=== PATIENT | female | born 1965 | race African-American/Black ===

== ENCOUNTER 2021-01-23 15:19 | Emergency (ER) | payer SELFPAY ==
[~2021-01-23] VITALS: Ht 160 cm; Wt 58.1 kg
[2021-01-23 16:04] VITALS: BP 141/59
[2021-01-23] MEDS ORDERED: HYDR25TA PO (20:29)
[2021-01-23] MEDS ORDERED: BACI28.44 TP (20:29)
[2021-01-23] MEDS ORDERED: METH4TAB2 PO (20:29)
--- NOTE | 2021-01-23 20:29 | ED.ADGEN ---
Past Medical History Past Medical History: No Pertinent History Past Surgical History: No Surgical History Smoking Status: Never Smoker Alcohol Use: None General Adult EDM: Chief Complaint: SKIN RASH/ABSCESS HPI: HPI: Patient is a 55 year old female coming in for worsening 2 weeks of pruritic rash. Patient states she was clearing out in her [place] garden and was exposed to poison oak. Itching them and the rash is moving around. Says she has some excoriated areas on her dorsal left wrist and right camp. Review of Systems: Review of Systems: All other systems within normal limits except for as noted in the HPI Current Medications: Current Medications Medications (Trade) Dose Ordered Sig/Nusrat Start Time Stop Time Status Last Admin Dose Admin Bacitracin (Bacitracin Zinc Oint Pkt) 1 pkt 1X ONCE 01/23/21 20:15 01/23/21 20:16 UNV Ceftriaxone Sodium (Rocephin Im) 1 gm 1X ONCE 01/23/21 20:15 01/23/21 20:16 UNV Hydroxyzine HCl (Vistaril Im) 25 mg 1X ONCE 01/23/21 20:15 01/23/21 20:16 UNV Methylprednisolone Sodium Succinate (SOLU-Medrol 125MG VIAL) 125 mg 1X ONCE 01/23/21 20:15 01/23/21 20:16 UNV Allergies: Allergies: Allergies Coded Allergies Type Severity Reaction Last Updated Verified No Known Drug Allergies 01/23/21 No Physical Exam: PE: Constitutional: Well developed, well nourished, no acute distress, non-toxic appearance. [] HENT: Normocephalic, atraumatic, bilateral external ears normal, nose normal. [] Eyes: PERRLA, conjunctiva normal, no discharge. [] Neck: No rigidity, supple, no stridor. [] Cardiovascular: Regular rate and rhythm, brisk cap refill [] Lungs & Thorax: Non labored symmetric respirations, no tachypnea or respiratory distress [] Abdomen: Soft, nondistended. Skin: Warm, scattered papules in various areas of excoriation worse on left wrist and right camp with some surrounding erythema, no fluctuance or drainage. Back: Unremarkable Extremities: No deformities, range of motion grossly intact, no lower extremity edema [] Neurologic: Alert and oriented X 3, no focal deficits noted. [] Psychologic: Affect normal, judgement normal, mood normal. [] Current Patient Data: Vital Signs: Vital Signs Date Time Temp Pulse Resp B/P (MAP) Pulse Ox O2 Delivery O2 Flow Rate FiO2 01/23/21 16:04 98.3 68 14 141/59 (86) 97 Room Air 98.3 EKG: EKG: [] Heart Score: C/O Chest Pain: No Risk Factors: Risk Factors: DM, Current or recent (<one month) smoker, HTN, HLP, family history of CAD, obesity. Risk Scores: Score 0 - 3: 2.5% MACE over next 6 weeks - Discharge Home Score 4 - 6: 20.3% MACE over next 6 weeks - Admit for Clinical Observation Score 7 - 10: 72.7% MACE over next 6 weeks - Early Invasive Strategies Radiology/Procedures: Radiology/Procedures: [] Course & Med Decision Making: Course & Med Decision Making Mild superficial bacterial infection appears to be on the excoriated areas. We will treat with ceftriaxone. Given his age medications and Solu-Medrol in emergency department. Patient is otherwise well-appearing [place] Disclaimer: Zarina Disclaimer: This electronic medical record was generated, in whole or in part, using a voice recognition dictation system. Departure Departure Disposition: HOME / SELF CARE / HOMELESS Condition: STABLE Referrals: NO PCP (PCP) Patient Instructions: Poison [place] Scripts Hydroxyzine Hcl (HYDROXYZINE HCL) 25 Mg Tablet 1 TAB PO TID PRN for ITCHING for 7 Days, #21 TAB Prov: ROSA GUERIN MD 01/23/21 Methylprednisolone (MEDROL) 4 Mg Tab.ds.pk 1 PKG PO UD for rash, #1 PKG Prov: ROSA GUERIN MD 01/23/21 Bacitracin Zinc (ANTIBIOTIC) 28.4 Gm Oint...g. 28.4 GM TP TID for antibiotic for 7 Days, #28 GM 1 Refill Prov: ROSA GUERIN MD 01/23/21 ROSA GUERIN MD Jan 23, 2021 20:29
[2021-01-23] MEDS ORDERED: methylPREDNISolone SOD SUCC PF 125 MG/2 ML VIAL. IV ONE (20:30)
[2021-01-23] MEDS ORDERED: BACITRACIN TOPICAL OINT PACKET. TP ONE (20:30)
[2021-01-23] MEDS ORDERED: cefTRIAXone IM 1 GM VIAL IM ONE (20:30)
[2021-01-23] MEDS ORDERED: hydrOXYzine IM 50 MG/ML VIAL IM ONE (20:30)
== END 2021-01-23 21:00 | disposition home or self-care (01) ==
LOC: ER 15:19
DX: R21 Rash and other nonspecific skin eruption (principal); L29.8 Other pruritus; R07.89 Other chest pain
CPT/HCPCS: 96372; 96374; 99284; J0696; J2930; J3410

== ENCOUNTER 2021-02-03 13:56 | Emergency (ER) | payer SELFPAY ==
[~2021-02-03] VITALS: Ht 157.5 cm; Wt 60.0 kg
[~2021-02-03 13:56] MED LIST: BACI28.44 TP; HYDR25TA PO; METH4TAB2 PO
[2021-02-03 18:20] VITALS: BP 140/88
[2021-02-03] MEDS ORDERED: DEXAMETHASONE SOD PHOS 20 MG/5 ML VIAL. IV ONE (19:15)
[2021-02-03] MEDS ORDERED: CEPH500T PO (19:40)
[2021-02-03] MEDS ORDERED: TRIA80OI TP (19:40)
[2021-02-03] MEDS ORDERED: PRED-220 PO (19:40)
[2021-02-03] MEDS ORDERED: HYDR50CA2 PO (19:40)
--- NOTE | 2021-02-03 19:41 | PHYS DOC ---
Past Medical History Past Medical History: No Pertinent History (JAYANT SAWANT APRN) Past Surgical History: No Surgical History (JAYANT SAWANT APRN) Smoking Status: Never Smoker Alcohol Use: None (JAYANT SAWANT APRN) General Adult EDM: Chief Complaint: SKIN PROBLEM HPI: HPI: Patient is a 55-year-old female who presents to the ED today with a pruritic rash that began 10 days ago, she states she is not sure what caused the rash. Patient states she was seen in the ED and started on Medrol Dosepak and hydroxyzine. She states the rash is still present. Denies any fever. She states some of the areas look infected. (JAYANT SAWANT APRN) Review of Systems: Review of Systems: Constitutional: Denies fever or chills. [] Musculoskeletal: Denies back pain or joint pain. [] Integument: Reports rash Neurologic: Denies headache, focal weakness or sensory changes. [] Psychiatric: Denies depression or anxiety. [] (JAYANT SAWANT APRN) Heart Score: C/O Chest Pain: N/A Risk Factors: Risk Factors: DM, Current or recent (<one month) smoker, HTN, HLP, family history of CAD, obesity. Risk Scores: Score 0 - 3: 2.5% MACE over next 6 weeks - Discharge Home Score 4 - 6: 20.3% MACE over next 6 weeks - Admit for Clinical Observation Score 7 - 10: 72.7% MACE over next 6 weeks - Early Invasive Strategies (JAYANT SAWANT APRN) Current Medications: Current Medications Medications (Trade) Dose Ordered Sig/Nusrat Start Time Stop Time Status Last Admin Dose Admin Dexamethasone Sodium Phosphate (Decadron) 10 mg 1X ONCE 02/03/21 19:15 02/03/21 19:16 DC (JAYANT SAWANT APRN) Allergies: Allergies: Allergies Coded Allergies Type Severity Reaction Last Updated Verified No Known Drug Allergies 01/23/21 No (JAYANT SAWANT APRN) Physical Exam: PE: Constitutional: Well developed, well nourished, no acute distress, non-toxic appearance. [] Skin: Moderate amount of excoriated rash on patient's neck, upper extremity worse on the antecubital joints and right camp. Some of the areas appear in fected. She has applied calamine lotion making it hard to really evaluate the regions. Back: No tenderness, no CVA tenderness. [] Extremities: No tenderness, no cyanosis, no clubbing, ROM intact, no edema. [] Neurologic: Alert and oriented X 3, normal motor function, normal sensory function, no focal deficits noted. [] Psychologic: Affect normal, judgement normal, mood normal. [] (JAYANT SAWANT APRN) Current Patient Data: Vital Signs: Vital Signs Date Time Temp Pulse Resp B/P (MAP) Pulse Ox O2 Delivery O2 Flow Rate FiO2 02/03/21 18:20 98.0 56 16 140/88 (86) 100 Room Air 98.0 (JAYANT SAWANT APRN) EKG: EKG: [] (JAYANT SAWANT APRN) Radiology/Procedures: Radiology/Procedures: [] (JAYANT SAWANT APRN) Course & Med Decision Making: Course & Med Decision Making Pertinent Labs and Imaging studies reviewed. (See chart for details) Patient has infected rash that began 10 days ago. I advised this patient to follow-up with a farm machinery engine mechanic. This could be eczema or psoriasis among the d ifferentials, she has already tried Medrol Dosepak and hydroxyzine with no improvement. The rash has become infected. Tetanus is up-to-date. I put patient on triamcinolone cream which I recommended she mixes with with Eucerine. I also gave her a high dose of tapered dose of prednisone and a higher dose of hydroxyzine and cephalaxin (JAYANT SAWANT APRN) Course & Med Decision Making I have participated in the care of this patient and I have reviewed and agree with all pertinent clinical information above including history, exam, and recommendations. Dale Ponce DO (DALE PONCE DO) Zarina Disclaimer: Zarina Disclaimer: This electronic medical record was generated, in whole or in part, using a voice recognition dictation system. (JAYANT SAWANT APRN) Departure Departure Impression: Primary Impression: Skin infection Additional Impression: Eczema Qualified Codes: L20.82 - Flexural eczema Disposition: HOME / SELF CARE / HOMELESS Condition: STABLE Referrals: NO PCP (PCP) follow-up with the dermatology clinic. Their contact information is dermatology [address], [facility] Patient Instructions: Eczema, Skin Infections Additional Instructions: You were evaluated in the emergency room for a rash, we highly recommend you follow-up with the dermatology clinic as soon as possible Their contact information is dermatology [address], [place], [phone] Make an Appointment Scripts Triamcinolone Acetonide (TRIAMCINOLONE ACETONIDE) 80 Gm Oint...g. 1 MARY KATE TP BID, #80 GM 1 Refill 0.1% Prov: JAYANT SAWANT APRN 02/03/21 Hydroxyzine Pamoate (HYDROXYZINE PAMOATE) 50 Mg Capsule 1 CAP PO TID, #90 CAP Prov: JAYANT SAWANT APRN 02/03/21 Prednisone (PREDNISONE ) 10 Mg Tablet 10 MG PO UD for PREDNISONE TAPER, #39 TAB 0 Refills Take 3 tablets by mouth twice a day for 3 days, then take 2 tablets by mouth twice a day for 3 days, then take 1 tablet by mouth twice a day for 3 days, then take 1 tablet by mouth daily x 3 days, then stop. Prov: JAYANT SAWANT APRN 02/03/21 Cephalexin (CEPHALEXIN) 500 Mg Tablet 1 TAB PO TID, #30 TAB Prov: JAYANT SAWANT APRN 02/03/21 JAYANT SAWANT APRN Feb 03, 2021 19:41 DALE PONCE DO Feb 03, 2021 23:34
== END 2021-02-03 19:50 | disposition home or self-care (01) ==
LOC: ER 13:56
DX: L20.82 Flexural eczema (principal); L08.89 Other specified local infections of the skin and subcutaneous tissue
CPT/HCPCS: 99283

== ENCOUNTER 2021-05-11 19:20 | Emergency (ER) | payer SELFPAY ==
[~2021-05-11] VITALS: Ht 157.5 cm; Wt 63.0 kg
[~2021-05-11 19:20] MED LIST changes: +CEPH500T PO; +HYDR50CA2 PO; +PRED-220 PO; +TRIA80OI TP
[2021-05-11 19:22] VITALS: BP 141/61
[2021-05-11] MEDS ORDERED: CEPH500C PO (19:50)
[2021-05-11] MEDS ORDERED: BETA15CR5 TP (19:50)
[2021-05-11] MEDS ORDERED: METH4TAB2 PO (19:50)
--- NOTE | 2021-05-11 19:50 | PHYS DOC ---
Past Medical History Past Medical History: No Pertinent History Past Surgical History: No Surgical History Smoking Status: Never Smoker Alcohol Use: None General Adult EDM: Chief Complaint: SKIN PROBLEM HPI: HPI: Patient is a 56-year-old female who presents to the emergency department for a rash to her entire body that started 2 weeks ago. Patient reports that she has scabies. Patient has taken no treatment at home. She reports that the rash is itchy and then becomes painful because she scratches it. Patient denies fever, nausea, vomiting, fatigue or body aches. Review of Systems: Review of Systems: Constitutional: See HPI GI: See HPI Musculoskeletal: HPI Integument: See HPI Heart Score: C/O Chest Pain: N/A Risk Factors: Risk Factors: DM, Current or recent (<one month) smoker, HTN, HLP, family history of CAD, obesity. Risk Scores: Score 0 - 3: 2.5% MACE over next 6 weeks - Discharge Home Score 4 - 6: 20.3% MACE over next 6 weeks - Admit for Clinical Observation Score 7 - 10: 72.7% MACE over next 6 weeks - Early Invasive Strategies Allergies: Allergies: Allergies Coded Allergies Type Severity Reaction Last Updated Verified No Known Drug Allergies 01/23/21 No Physical Exam: PE: Constitutional: Well developed, well nourished, no acute distress, non-toxic appearance. [] HENT: Normocephalic, atraumatic, bilateral external ears normal, oropharynx moist, no oral exudates, nose normal. [] Eyes: PERRL, EOMI, conjunctiva normal, no discharge. [] Neck: Normal range of motion, no tenderness, supple, no stridor. [] Cardiovascular:Heart rate regular rhythm, no murmur [] Lungs & Thorax: Bilateral breath sounds clear to auscultation [] Abdomen: Bowel sounds normal, soft, no tenderness, no masses, no pulsatile masses. [] Skin: Warm, dry, erythematous, papular rash noted to entire body with mild erythema, scaling, ashy appearance and lichenification from patient scratching Back: Normal range of motion Extremities: No tenderness, no cyanosis, no clubbing, ROM intact, no edema. [] Neurologic: Alert and oriented X 3, normal motor function, normal sensory function, no focal deficits noted. [] Psychologic: Affect normal, judgement normal, mood normal. [] EKG: EKG: [] Radiology/Procedures: Radiology/Procedures: [] Course & Med Decision Making: Course & Med Decision Making Pertinent Labs and Imaging studies reviewed. (See chart for details) [] Patient presents to the emergency department for a rash to her entire body. Patient reports she believes she was exposed to scabies. Patient does not appear to have any lesions in the webbing's of her fingers. The rash is papular with skin thickening surrounding with mild erythema. Patient be treated with a steroid Dosepak and a steroid cream, and antibiotic. Tetanus updated due to several open lesions. Patient advised to follow-up with her primary care provider. I discussed with patient all findings and diagnostic testing as well as the need to follow-up with PCP for further evaluation and treatment or return to the ER if any new or worsening symptoms. Strict return precautions were also discussed at length. Patient voiced understanding and agreement with the plan. Patient is hemodynamically stable at the time of disposition. Dragon Disclaimer: Zarina Disclaimer: This electronic medical record was generated, in whole or in part, using a voice recognition dictation system. Departure Departure Impression: Primary Impression: Atopic dermatitis Qualified Codes: L20.9 - Atopic dermatitis, unspecified Disposition: HOME / SELF CARE / HOMELESS Condition: GOOD Referrals: NO PCP (PCP) Patient Instructions: Contact Dermatitis Additional Instructions: You are seen in the emergency department for a rash to your entire body. You believe that it is scabies. Your rash does not appear to be consistent with scabies rash. It does however appear to be more consistent with atopic dermatitis or eczema. You are being discharged home with a steroid cream that you can apply twice a day. You are also being discharged home with oral steroid and oral antibiotic to prevent infection. Your tetanus was updated in the ER. Please follow-up with your primary care provider within a few days regarding your ER visit. Return to the emergency department if you develop worsening of your rash, shortness of breath, difficulty swallowing, high fevers refractory to treatment, intractable nausea or vomiting, fatigue or body aches. Scripts Betamethasone Dipropionate (BETAMETHASONE DIPROPIONATE) 15 Gm Cream..g. 1 MARY KATE TP BID for 7 Days, #15 GM 0 Refills Prov: SERGIO BENNETT ENVIRONMENTAL ENGINEERING MANAGER 05/11/21 Methylprednisolone (MEDROL) 4 Mg Tab.ds.pk 1 PKG PO UD, #1 PKG 0 Refills Prov: SERGIO BENNETT APRN 05/11/21 Cephalexin (KEFLEX) 500 Mg Capsule 1 CAP PO QID for 7 Days, #28 CAP 0 Refills Prov: SERGIO BENNETT APRN 05/11/21 SERGIO BENNETT APRN May 11, 2021 19:50
[2021-05-11] MEDS ORDERED: DIPH,PERTUSS(ACELL),TET VAC/PF 0.5 ML SYRINGE. VAX IM ONE (20:00)
== END 2021-05-11 20:16 | disposition home or self-care (01) ==
LOC: ER 19:20
DX: L20.9 Atopic dermatitis, unspecified (principal)
CPT/HCPCS: 90471; 90715; 99283-25